=== PATIENT | male | born 1960 ===

== ENCOUNTER 2018-07-07 08:45 | Emergency (ER) | payer MEDICAID, OTHER ==
--- NOTE | 2018-07-07 09:23 | EDM.PDOC ---
ED HPI GENERAL MEDICAL PROBLEM - General Chief Complaint: Chest Pain Stated Complaint: CHEST DISCOMPORT Time Seen by Provider: 07/07/18 08:56 Source of Information: Reports: Patient, RN Notes Reviewed History Limitations: Reports: No Limitations - History of Present Illness INITIAL COMMENTS - FREE TEXT/NARRATIVE: The patient states that he has had left anterior axillary line discomfort on and off for the past 3 weeks. He describes the character as a "pressure". It comes on gradually, and typically lasts 20-30 minutes before resolving. He has not identified any modifiers, and he is able to walk and hike without difficulty. He states that the frequency seems to be increasing - he had 5 episodes yesterday. No associated symptoms, such as dyspnea, nausea, diaphoresis , or sense of impending doom, however, he does occasionally have dyspnea when he does not have chest discomfort. The patient states that he has had similar symptoms the past, ever since the summer of 2016, but they were very infrequent. No prior medical evaluation for the discomfort. The patient does not have a PCP. Left Chest Pain Score (Numeric/FACES): 3 - Related Data Allergies Allergy/AdvReac Type Severity Reaction Status Date / Time No Known Allergies Allergy Verified 07/07/18 08:55 Home Meds: Home Meds Calcium Carbonate [Tums] 200 mg PO ASDIRECTED PRN 07/07/18 [History] Ibuprofen 800 mg PO Q6H PRN 07/07/18 [History] Past Medical History HEENT History: Reports: Impaired Vision Other HEENT History: wears eyeglasses Musculoskeletal History: Reports: Fracture (Nose, right elbow, left femur) - Past Surgical History HEENT Surgical History: Reports: Oral Surgery (wisdom teeth extraction) Musculoskeletal Surgical History: Reports: ORIF (roght elbow), Shoulder Surgery (right, arthroscopic), Other (See Below) (Left femur ovidio + removal) Social & Family History - Tobacco Use Smoking Status *Q: Former Smoker Years of Tobacco use: 16 Packs/Tins Daily: 1 Month/Year Tobacco Last Used: Quit 1996 Second Hand Smoke Exposure: No - Caffeine Use Caffeine Use: Reports: Coffee - Alcohol Use Alcohol Use History: Yes Alcohol Use Frequency: Rarely - Recreational Drug Use Recreational Drug Use: No - Living Situation & Occupation Living situation: Reports: Single, Alone Occupation: Unemployed ED ROS GENERAL - Review of Systems Review Of Systems: ROS reveals no pertinent complaints other than HPI. ED EXAM, GENERAL - Physical Exam Exam: See Below Exam Limited By: No Limitations General Appearance: Alert, WD/WN, No Apparent Distress Eye Exam: Bilateral Eye: EOMI, Normal Inspection Ears: Normal External Exam, Hearing Grossly Normal Nose: Normal Inspection Throat/Mouth: Normal Inspection, Normal Lips, Normal Voice, No Airway Compromise Head: Atraumatic, Normocephalic Neck: Normal Inspection, Full Range of Motion Respiratory/Chest: No Respiratory Distress, Lungs Clear, Normal Breath Sounds, No Accessory Muscle Use, Chest Non-Tender (including along the left anterior axillary line) Cardiovascular: Normal Peripheral Pulses, Regular Rate, Rhythm, No Gallop, No JVD, No Murmur, No Rub Peripheral Pulses: 4+: Radial (L), Radial (R) GI/Abdominal: Normal Bowel Sounds, Soft, Non-Tender, No Organomegaly, No Distention, No Abnormal Bruit, No Mass (Male) Exam: Deferred Rectal (Males) Exam: Deferred Back Exam: Normal Inspection, Full Range of Motion Extremities: Normal Inspection, Normal Range of Motion, No Pedal Edema, Normal Capillary Refill Neurological: Alert, Oriented, Normal Cognition, No Motor/Sensory Deficits Psychiatric: Normal Affect Skin Exam: Warm, Dry, Intact, Normal Color, No Rash EKG INTERPRETATION EKG Date: 07/07/18 Time: 08:57 Rhythm: NSR Rate (Beats/Min): 90 [place]: Normal P-Wave: Present (AV interval at upper limits of normal. ? LIANET?) QRS: Normal (Late transition) ST-T: Normal QT: Normal Comparison: NA - No Prior EKG Course - Vital Signs Last Recorded V/S: Last Vital Signs Temp 37.0 C 07/07/18 11:08 Pulse 90 07/07/18 11:08 Resp 24 H 07/07/18 11:08 BP 128/91 H 07/07/18 11:08 Pulse Ox 96 07/07/18 11:08 - Orders/Labs/Meds Labs: Laboratory Tests 07/07/18 07/07/18 07/07/18 Range/Units 09:10 09:10 09:10 WBC 6.43 (4.23-9.07) K/mm3 RBC 5.58 (4.63-6.08) M/mm3 Hgb 16.4 (13.7-17.5) gm/L Hct 48.4 (40.1-51.0) % MCV 86.7 (79.0-92.2) fl MCH 29.4 (25.7-32.2) pg MCHC 33.9 (32.2-35.5) g/dl RDW Std Deviation 40.9 (35.1-43.9) fL Plt Count 245 (163-337) K/mm3 MPV 9.4 (9.4-12.3) fl Neutrophils % (Manual) 68 H (40-60) % Band Neutrophils % 0 (0-10) % Lymphocytes % (Manual) 29 (20-40) % Atypical Lymphs % 0 % Monocytes % (Manual) 3 (2-10) % Eosinophils % (Manual) 0 L (0.8-7.0) % Basophils % (Manual) 0 L (0.2-1.2) Platelet Estimate Adequate RBC Morph Comment Normal D-Dimer, Quantitative < 0.19 L (0.19-0.50) mg/L Sodium 138 (136-145) mEq/L Potassium 4.0 (3.5-5.1) mEq/L Chloride 102 (98-107) mEq/L Carbon Dioxide 29 (21-32) mEq/L Anion Gap 11.0 (5-15) BUN 9 (7-18) mg/dL Creatinine 1.0 (0.7-1.3) mg/dL Est Cr Clr Drug Dosing 84.15 mL/min Estimated GFR (MDRD) > 60 (>60) mL/min BUN/Creatinine Ratio 9.0 L (14-18) Glucose 101 (74-106) mg/dL Calcium 9.4 (8.5-10.1) mg/dL Total Bilirubin 0.7 (0.2-1.0) mg/dL AST 29 (15-37) U/L ALT 24 (16-63) U/L Alkaline Phosphatase 54 (46-116) U/L Troponin I < 0.017 (0.00-0.056) ng/mL Total Protein 7.6 (6.4-8.2) g/dl Albumin 4.3 (3.4-5.0) g/dl Globulin 3.3 gm/dL Albumin/Globulin Ratio 1.3 (1-2) - Re-Assessments/Exams Free Text/Narrative Re-Assessment/Exam: 07/07/18 09:18 There are some features of the patient's presentation - that it is a pressure sensation, a discomfort, that comes on gradually and persists for 20-30 minutes - that are concerning for a cardiac etiology, while other features, including its location along the anterior axillary line, speak against a cardiac etiology. I have ordered a workup that will include a troponin and D-dimer, along with a chest x-ray. The patient's ECG shows late transition, but is otherwise unremarkable. Provided his workup today is negative, I will refer the patient to a PCP for an outpatient stress test. 07/07/18 09:48 2-view chest radiograph appears to be grossly normal. The cardiac silhouette is within normal limits. No pulmonary vascular congestion. No pleural effusions. No focal infiltrate. No pneumothorax. Formal read per the Radiologist pending. 07/07/18 10:50 Test results discussed with the patient. Today's workup is entirely unremarkable. Based on his history and physical examination, I suspect that his pain is musculoskeletal, less likely gastroenterologic, however, as above, I believe it would be prudent for him to undergo an outpatient cardiac stress test. I will refer him to Dr. Tom. Departure - Departure Time of Disposition: 10:51 Disposition: Home, Self-Care 01 Condition: Good Clinical Impression: Chest pain of uncertain etiology - Discharge Information *PRESCRIPTION DRUG MONITORING PROGRAM REVIEWED*: Not Applicable *COPY OF PRESCRIPTION DRUG MONITORING REPORT IN PATIENT [place]ILSON: Not Applicable Instructions: Nonspecific Chest Pain, [id number] Referrals: Nataly Tom MD [Physician] - Forms: ED Department Discharge Additional Instructions: You were seen in the emergency room for intermittent left-sided chest pain over the past 3 weeks. Workup in the ER included blood work, a chest x-ray, and an ECG. Your entire workup was unremarkable. You have not suffered a heart attack. You do not have a blood clot in your lungs. You do not have pneumonia, or a collapsed lung. The cause of your left-sided chest pain is unclear. It may be musculoskeletal, gastroenterologic, or, less likely, your heart. We recommend that you take [id number] ibuprofen, 2-3 tablets (400-600 mg) every 8 hours, with food, as needed for discomfort. We recommend that you undergo an outpatient cardiac stress test. Please follow- up with Dr. Nataly Tom in the clinic, to arrange for an outpatient cardiac stress test. If any other problems, please do not hesitate to return to the ER.
--- NOTE | 2018-07-07 09:52 | CR ---
Chest: Two views of the chest were obtained. Comparison: No previous study. Heart size and mediastinum are normal. Lungs are clear. Bony structures are unremarkable. Impression: 1. Nothing acute is seen on two-view chest x-ray. Diagnostic code #1
== END 2018-07-07 11:15 | disposition home or self-care (01) ==
LOC: JD.ED 08:45
DX: R07.89 Other chest pain (principal); Z87.891 Personal history of nicotine dependence; Z98.890 Other specified postprocedural states
CPT/HCPCS: 36415; 71046; 71046-26; 80053; 84484; 85007; 85027; 85379; 93005; 99285-25